=== PATIENT | male | born 2000 | race Two or more races ===

== ENCOUNTER 2021-01-28 20:02 | Observation (INO) ==
[2021-01-28] MEDS ORDERED: ONDANSETRON INJ 2 MG/ML 2 ML VIAL IV STA (20:40)
[2021-01-28 21:08] LABS: Basophils # (auto) 0.01 K/uL (0-0.2); Hematocrit (blood only) 49.9 % (42-52); Immature Granulocytes # (auto) 0.08 K/uL (0.00-0.02); Immature Granulocytes % (auto) 0.4 %; Lymphocytes # (auto) 1.04 K/uL (1.2-3.4); Lymphocytes % (auto) 4.7 %; Mean Corpuscular Hemoglobin 33.3 pg (25-34); Mean Corpuscular Hgb Conc 36.1 g/dL (32-36); Mean Corpuscular Volume 92.4 fL (80-100); Mean Platelet Volume 9.7 fL (7.4-10.4); Monocytes # (auto) 1.55 K/uL (0.11-0.59); Monocytes % (auto) 7.1 %; Neutrophils # (auto) 19.27 K/uL (1.4-6.5); Neutrophils % (auto) 87.8 %; Platelet Count 238 K/uL (130-400); RDW Standard Deviation 40.4 fL (36.4-46.3); White Blood Count 21.95 K/uL (4.8-10.8)
[2021-01-28 21:33] LABS: Albumin Level 5.1 gm/dl (3.4-5.0); BUN Creatinine Ratio 9.5 (10-20); Calcium 10.4 mg/dl (8.5-10.1); Est GFR (African American) 87.9 ml/min; Est GFR (Non-African American) 75.9 ml/min; Potassium 3.3 mmol/L (3.5-5.1)
[2021-01-28 21:36] LABS: Albumin Globulin Ratio 1.3 (0.9-2); Bilirubin,Total 1.6 mg/dl (0.2-1); Globulin 3.9 gm/dl (2.5-4.0)
[2021-01-28] MEDS ORDERED: SODIUM CHLORIDE 0.9% 1000ML 1,000 ML IV ONE (22:08)
[2021-01-28] MEDS ORDERED: diphenhydrAMINE 50 MG/ML VIAL IV STA (22:08)
[2021-01-28] MEDS ORDERED: PROCHLORPERAZINE 2 ML IV ONE (22:08)
--- NOTE | 2021-01-28 22:35 | Emergency Department Note ---
History of Present Illness General Chief complaint: Abdominal Pain Stated complaint: ABD PAIN, NAUSEA AND VOMITING Time Seen by Provider: 01/28/21 21:58 Source: patient Mode of arrival: ambulatory Limitations: no limitations History of Present Illness This patient is a 20-year-old male who presents to the emergency department for evaluation of nausea and vomiting. Patient states he woke up this morning with vomiting. He has been vomiting all day. He was seen at [facility] and had a shot of nausea medication. He was also given a dose of IV Zofran in triage prior to my evaluation of the patient. He states neither of these have worked and he is still vomiting. He has some chills and shakes but denies any fevers. He denies any abdominal pain or diarrhea. Patient was not drinking any alcohol yesterday. He thinks he may have eaten a piece of bad chicken. Patient does admit to daily marijuana use and states that he smoked marijuana yesterday. He denies any history of similar episodes of symptoms. He does report earlier in the week, he had some cough and nasal congestion, but these have now resolved. Home Medications Medication Instructions Recorded Confirmed Type No Known Home Medications 01/28/21 01/28/21 History Allergies Allergy/AdvReac Type Severity Reaction Status Date / Time No Known Allergies Allergy Unverified 01/28/21 21:54 Past Med/Surg History Medical History No significant past medical history Surgical History No significant past surgical history Social History Smoking Status: Current every day smoker Preferred Language: Ghanaian Feels Safe at Home: Yes Review of Systems A total of 10 systems reviewed and were otherwise negative Physical Exam Vital Signs Vital Signs - 24 hr 01/28/21 20:17 01/28/21 22:00 01/28/21 22:06 Temperature 36.9 C Temperature Source Oral Pulse Rate 82 77 Pulse Rate [Left Finger] 75 Pulse Rate from SpO2 Sensor 78 Pulse Rhythm [Left Finger] Regular Pulse Strength [Left Finger] Normal Respiratory Rate 18 24 18 Respiratory Effort / Characteristics Non-Labored Spontaneous Non-Labored Spontaneous Respiratory Depth Normal Normal Respiratory Pattern Regular Regular Blood Pressure 133/87 131/83 Blood Pressure [Left Arm] 131/83 Blood Pressure Mean 102 99 Blood Pressure Mean [Left Arm] 99 Blood Pressure Position Sitting Blood Pressure Position [Left Arm] Sitting Pulse Oximetry 100 100 100 Oxygen Delivery Method Room Air Room Air Room Air Sepsis Recent Fever Within 48 Hours No Sepsis New/Unexplained Change in Mental Status N/A Sepsis Action Taken by Nursing No Action Required 01/28/21 22:32 01/28/21 22:40 01/28/21 22:50 Temperature Temperature Source Pulse Rate 68 69 77 Pulse Rate [Left Finger] Pulse Rate from SpO2 Sensor 68 71 71 Pulse Rhythm [Left Finger] Pulse Strength [Left Finger] Respiratory Rate 21 17 18 Respiratory Effort / Characteristics Respiratory Depth Respiratory Pattern Blood Pressure Blood Pressure [Left Arm] Blood Pressure Mean Blood Pressure Mean [Left Arm] Blood Pressure Position Blood Pressure Position [Left Arm] Pulse Oximetry 100 100 100 Oxygen Delivery Method Room Air Room Air Room Air Sepsis Recent Fever Within 48 Hours Sepsis New/Unexplained Change in Mental Status Sepsis Action Taken by Nursing 01/28/21 23:00 01/28/21 23:22 01/28/21 23:30 Temperature Temperature Source Pulse Rate 77 Pulse Rate [Left Finger] Pulse Rate from SpO2 Sensor 74 84 64 Pulse Rhythm [Left Finger] Pulse Strength [Left Finger] Respiratory Rate 16 18 16 Respiratory Effort / Characteristics Respiratory Depth Respiratory Pattern Blood Pressure 105/40 L 121/68 Blood Pressure [Left Arm] Blood Pressure Mean 61 85 Blood Pressure Mean [Left Arm] Blood Pressure Position Blood Pressure Position [Left Arm] Pulse Oximetry 100 100 100 Oxygen Delivery Method Room Air Sepsis Recent Fever Within 48 Hours Sepsis New/Unexplained Change in Mental Status Sepsis Action Taken by Nursing 01/29/21 01:32 01/29/21 02:53 01/29/21 04:00 Temperature Temperature Source Pulse Rate Pulse Rate [Left Finger] Pulse Rate from SpO2 Sensor 62 83 82 Pulse Rhythm [Left Finger] Pulse Strength [Left Finger] Respiratory Rate 16 16 16 Respiratory Effort / Characteristics Respiratory Depth Respiratory Pattern Blood Pressure 94/46 L 100/48 L 100/54 L Blood Pressure [Left Arm] Blood Pressure Mean 62 65 69 Blood Pressure Mean [Left Arm] Blood Pressure Position Blood Pressure Position [Left Arm] Pulse Oximetry 100 95 97 Oxygen Delivery Method Room Air Sepsis Recent Fever Within 48 Hours Sepsis New/Unexplained Change in Mental Status Sepsis Action Taken by Nursing 01/29/21 05:00 01/29/21 05:31 01/29/21 06:00 Temperature Temperature Source Pulse Rate Pulse Rate [Left Finger] Pulse Rate from SpO2 Sensor 78 83 77 Pulse Rhythm [Left Finger] Pulse Strength [Left Finger] Respiratory Rate 18 16 18 Respiratory Effort / Characteristics Respiratory Depth Respiratory Pattern Blood Pressure 101/57 L 107/46 L 100/53 L Blood Pressure [Left Arm] Blood Pressure Mean 71 66 68 Blood Pressure Mean [Left Arm] Blood Pressure Position Blood Pressure Position [Left Arm] Pulse Oximetry 95 95 98 Oxygen Delivery Method Room Air Room Air Sepsis Recent Fever Within 48 Hours Sepsis New/Unexplained Change in Mental Status Sepsis Action Taken by Nursing VITALS: Vitals are noted on the nurse's note and reviewed by myself. GENERAL: This is a 20-year-old male, uncomfortable appearing, actively vomiting bilious emesis into an emesis bag. SKIN: The skin was without rashes. EARS: External auditory canals clear, tympanic membranes pearly lozano without erythema or effusion bilaterally. EYES: Pupils equal round and reactive to light and accommodation. NOSE: Patent, turbinates without inflammation or discharge. MOUTH: Mucous membranes dry. NECK: Supple without nuchal rigidity. No lymphadenopathy. HEART: Regular rate and rhythm without murmurs gallops or rubs. LUNGS: Clear to auscultation bilaterally without wheezes, rales or rhonchi. ABDOMEN: Positive bowel sounds x 4. Soft, nontender to palpation. No guarding or rebound tenderness. NEURO: Patient was alert and oriented to person place and time. Course Consultations Consultation #1: Dr. Valenzuela - Dr. Valenzuela recommends transfer to a tertiary care facility. Consultation #2: Dr. Benites - [facility] I spoke with Dr. Benites, hospitalist at [facility]. He states they do not have beds and based on the patient's clinical status, he does not feel the patient needs to be emergently transferred. He will reach out to cardiothoracic surgery for consultation. Consultation #3: Dr. García - Cardiothoracic surgery, [facility] I spoke with cardiothoracic surgery at [facility] and discussed patient's clinical status and imaging. He felt that the patient did need to be observed, but as they have no beds he could be reasonably observed at our facility. He recommends observing the patient for 24 hours and if he is doing well at that time, he may be discharged. He states that if there is any deterioration in the patient's clinical status, he should be transferred to [facility] emergently. Additional Consultation(s): Dr. Ricardo Camacho [facility] hospitalist Administered Medications Discontinued Medications Diphenhydramine HCl (Diphenhydramine 50 Mg/Ml Vial) 25 mg IV NOW STA Stop: 01/28/21 22:09 Last Admin: 01/28/21 22:24 Dose: 25 mg Documented by: [id number] Prochlorperazine (Compazine) 2 mls @ 1 mls/min IV ONE ONE Stop: 01/28/21 22:09 Last Admin: 01/28/21 23:21 Dose: 1 mls/min Documented by: [id number] Sodium Chloride (Nss 1000ml) 1,000 mls @ 999 mls/hr IV .Q1H1M ONE Stop: 01/28/21 23:08 Last Infusion: 01/28/21 23:22 Dose: 0 mls/hr Documented by: [id number] Admin: 01/28/21 22:21 Dose: 999 mls/hr Documented by: [id number] Piperacillin Sod/Tazobactam (Sod 3.375 gm/ Dextrose) 100 ml in 115 mls @ 230 mls/hr IV NOW STA Stop: 01/29/21 03:07 Last Infusion: 01/29/21 03:24 Dose: 0 mls/hr Documented by: [id number] Admin: 01/29/21 02:54 Dose: 230 mls/hr Documented by: [id number] Ioversol (Optiray 320 100ml) 93 ml IV ONCE ONE Stop: 01/28/21 23:11 Last Admin: 01/28/21 23:10 Dose: 93 ml Documented by: [id number] Miscellaneous Information (Piperacill/Tazobac Consult Active) 1 ea N/A UD PRN PRN Reason: Consult Stop: 02/28/21 02:37 Last Admin: 01/29/21 02:54 Dose: 1 ea Documented by: [id number] Ondansetron HCl (Ondansetron Inj 2 Mg/Ml 2 Ml Vial) 4 mg IV NOW STA Stop: 01/28/21 20:41 Last Admin: 01/28/21 20:58 Dose: 4 mg Documented by: [id number] Medical Decision Making Differential Diagnosis Gastroenteritis, food borne illness, infections, appendicitis, diverticulitis, inflammatory bowel disease, obstruction, GI bleed, biliary pathology, volvulus, as well as other pathologies. Home Medications Current Medication List: was personally reviewed by me Laboratory Data Attestation: I reviewed the patient's lab results. Result diagrams: 01/28/21 20:54 01/28/21 20:54 Lab Results 01/28/21 01/28/21 01/28/21 Range/Units 20:54 20:54 23:54 WBC 21.95 H (4.8-10.8) K/uL RBC 5.40 (4.7-6.1) M/uL Hgb 18.0 (14.0-18.0) g/dL Hct 49.9 (42-52) % MCV 92.4 (80-100) fL MCH 33.3 (25-34) pg MCHC 36.1 H (32-36) g/dL RDW Std Deviation 40.4 (36.4-46.3) fL RDW Coeff of Radha 12.0 (11.5-14.5) % Plt Count 238 (130-400) K/uL MPV 9.7 (7.4-10.4) fL Immature Gran % (Auto) 0.4 % Neut % (Auto) 87.8 % Lymph % (Auto) 4.7 % Day % (Auto) 7.1 % Eos % (Auto) 0.0 % Baso % (Auto) 0.0 % Neut # (Auto) 19.27 H (1.4-6.5) K/uL Lymph # (Auto) 1.04 L (1.2-3.4) K/uL Day # (Auto) 1.55 H (0.11-0.59) K/uL Eos # (Auto) 0.00 (0-0.5) K/uL Baso # (Auto) 0.01 (0-0.2) K/uL Immature Gran # (Auto) 0.08 H (0.00-0.02) K/uL Sodium 136 (136-145) mmol/L Potassium 3.3 L (3.5-5.1) mmol/L Chloride 102 (98-107) mmol/L Carbon Dioxide 23 (21-32) mmol/L Anion Gap 11.0 (3-11) BUN 13 (7-18) mg/dl Creatinine 1.33 (0.6-1.4) mg/dl Est Cr Clr Drug Dosing 105.0 ml/min Est GFR ( Amer) 87.9 ml/min Est GFR (Non-Af Amer) 75.9 ml/min BUN/Creatinine Ratio 9.5 L (10-20) Glucose 125 H (70-99) mg/dl Calcium 10.4 H (8.5-10.1) mg/dl Total Bilirubin 1.6 H (0.2-1) mg/dl AST 27 (15-37) U/L ALT 31 (12-78) U/L Alkaline Phosphatase 89 (45-117) U/L Total Protein 9.0 H (6.4-8.2) gm/dl Albumin 5.1 H (3.4-5.0) gm/dl Globulin 3.9 (2.5-4.0) gm/dl Albumin/Globulin Ratio 1.3 (0.9-2) Lipase 129 (73-393) U/L Urine Color Yellow Urine Appearance Clear (Clear) Urine pH >= 9.0 H (4.5-7.5) Ur Specific [place] > 1.045 H (1.000-1.030) Urine Protein Negative (Negative) Urine Glucose (UA) Negative (Negative) Urine Ketones 1+ H (Negative) Urine Blood Negative (Negative) Urine Nitrite Negative (Negative) Urine Bilirubin Negative (Negative) Urine Urobilinogen Negative (Negative) Ur Leukocyte Esterase Negative (Negative) Urine Opiates Screen (Neg) Ur Methadone, Qual (Neg) Urine Barbiturates (Neg) Ur Phencyclidine (PCP) (Neg) U Amphetamin/Meth Scrn (Neg) MDMA (Ecstasy) Screen (Neg) U Benzodiazepines Scrn (Neg) Ur Cocaine Metabolite (Neg) U Marijuana (THC) Screen (Neg) COVID-19 Eval Order SARS-CoV-2 (PCR) (Negative) 01/28/21 01/29/21 01/29/21 Range/Units 23:54 03:30 03:30 WBC (4.8-10.8) K/uL RBC (4.7-6.1) M/uL Hgb (14.0-18.0) g/dL Hct (42-52) % MCV (80-100) fL MCH (25-34) pg MCHC (32-36) g/dL RDW Std Deviation (36.4-46.3) fL RDW Coeff of Radha (11.5-14.5) % Plt Count (130-400) K/uL MPV (7.4-10.4) fL Immature Gran % (Auto) % Neut % (Auto) % Lymph % (Auto) % Day % (Auto) % Eos % (Auto) % Baso % (Auto) % Neut # (Auto) (1.4-6.5) K/uL Lymph # (Auto) (1.2-3.4) K/uL Day # (Auto) (0.11-0.59) K/uL Eos # (Auto) (0-0.5) K/uL Baso # (Auto) (0-0.2) K/uL Immature Gran # (Auto) (0.00-0.02) K/uL Sodium (136-145) mmol/L Potassium (3.5-5.1) mmol/L Chloride (98-107) mmol/L Carbon Dioxide (21-32) mmol/L Anion Gap (3-11) BUN (7-18) mg/dl Creatinine (0.6-1.4) mg/dl Est Cr Clr Drug Dosing ml/min Est GFR ( Amer) ml/min Est GFR (Non-Af Amer) ml/min BUN/Creatinine Ratio (10-20) Glucose (70-99) mg/dl Calcium (8.5-10.1) mg/dl Total Bilirubin (0.2-1) mg/dl AST (15-37) U/L ALT (12-78) U/L Alkaline Phosphatase (45-117) U/L Total Protein (6.4-8.2) gm/dl Albumin (3.4-5.0) gm/dl Globulin (2.5-4.0) gm/dl Albumin/Globulin Ratio (0.9-2) Lipase (73-393) U/L Urine Color Urine Appearance (Clear) Urine pH (4.5-7.5) Ur Specific [place] (1.000-1.030) Urine Protein (Negative) Urine Glucose (UA) (Negative) Urine Ketones (Negative) Urine Blood (Negative) Urine Nitrite (Negative) Urine Bilirubin (Negative) Urine Urobilinogen (Negative) Ur Leukocyte Esterase (Negative) Urine Opiates Screen Neg (Neg) Ur Methadone, Qual Neg (Neg) Urine Barbiturates Neg (Neg) Ur Phencyclidine (PCP) Neg (Neg) U Amphetamin/Meth Scrn Neg (Neg) MDMA (Ecstasy) Screen Neg (Neg) U Benzodiazepines Scrn Neg (Neg) Ur Cocaine Metabolite Neg (Neg) U Marijuana (THC) Screen Pos H (Neg) COVID-19 Eval Order Covid19 at [facility] SARS-CoV-2 (PCR) NEGATIVE (Negative) Imaging Data Radiologist's Impression: Abdomen/Pelvis CT 01/28/21 22:17 CT SCAN OF THE ABDOMEN AND PELVIS WITH IV CONTRAST CLINICAL HISTORY: Vomiting. Leukocytosis. COMPARISON STUDY: No priors. TECHNIQUE: Following the IV administration of 93 cc of Optiray 320, CT scan of the abdomen and pelvis is performed from the lung bases to the proximal femora. Images are reviewed in the axial, sagittal, and coronal planes. IV contrast was administered without complication. A dose lowering technique was utilized adhering to the principles of ALARA. CT DOSE: 356.63 mGy.cm FINDINGS: Lung bases: The heart is normal in size and without pericardial effusion. The lung bases are clear. Pneumomediastinum is noted around the distal esophagus. Liver: The contrast-enhanced liver is normal in size, contour, and attenuation. There is no intrahepatic biliary ductal dilatation. The hepatic veins and portal veins are patent. Gallbladder: Unremarkable. Spleen: Normal in size and attenuation. Pancreas: Unremarkable. Adrenal glands: Unremarkable. Kidneys: The contrast enhanced kidneys are normal in size and without hydronephrosis. The kidneys enhance symmetrically. Abdominal vasculature: The abdominal aorta is normal in course and caliber. Bowel: There is mild to moderate colonic fecal retention. No bowel obstruction is seen. The appendix is well-visualized and normal. Peritoneum: No intraperitoneal free air or abdominal ascites is identified. Lymphadenopathy: None. Pelvic viscera: The bladder, prostate, and seminal vesicles are normal as visualized. Skeletal structures: No lytic or blastic lesions are seen. IMPRESSION: 1. Pneumomediastinum is noted in the lower chest. 2. No acute infectious or inflammatory findings are seen in the abdomen or pelvis. 3. No bowel obstruction. ACT 112: Negative or not required by law. Electronically signed by: Fili Cartwright M.D. 01/29/2021 8:[address] CHEST With Contrast: As noted on the recent CT abdomen and pelvis, there is pneumomediastinum. No leakage of enteric contrast to indicate esophageal rupture. No pneumothorax. Left upper lobe airspace infiltrates suggesting pneumonitis. Radiologist: Ventura Kenny M.D. MDM Narrative Continuous monitor technician: Order was placed for continuous monitor technician. Patient was placed on the monitor technician. Patient was noted to be in normal sinus rhythm at an initial rate of 80 bpm. The patient is a 20-year-old male who presents today complaining of vomiting. I suspect that his vomiting is due to marijuana hyperemesis. He has no abdominal pain, no fevers. However, patient does have a significant leukocytosis at 21,000. Given this, a CT scan was performed. This showed pneumomediastinum. A CT of the chest with oral contrast was then performed and showed no evidence of esophageal rupture. GI was consulted and did recommend transfer to a tertiary care facility. However, [facility] has no beds available. They recommend observing the patient as he is doing well at this time. They did recommend that the patient be transferred emergently if he has any deterioration in his clinical status. After receiving IV fluids, Compazine and Benadryl here, patient felt much better and denied any symptoms at all. He actually asked to go home, but I recommended that he stay for observation and he was agreeable to this. [facility] hospitalist service was consulted and agreed to evaluate the patient for further care. Impression & Plan Pneumomediastinum, Vomiting Discharge Plan Visit Data Chief Complaint: Abdominal Pain Stated Complaint: ABD PAIN, NAUSEA AND VOMITING ED Provider: Frederic Griggs ED Midlevel Provider: Trinity Alvarado Discharge Problem: Pneumomediastinum, Vomiting Patient Disposition: Admitted As Inpatient Discharge Instructions Interventions: ED Discharge Assessment Last Done: 01/29/21 07:49
[2021-01-28] MEDS ORDERED: OPTIRAY 320 100ml IV ONE (23:10)
[2021-01-29 00:20] LABS: Appearance Urine Clear (Clear); Bilirubin Urine Negative (Negative); Blood Urine Negative (Negative); Color Urine Yellow; Glucose Urine UA Negative (Negative); Ketones Urine 1+ (Negative); Leukocyte Esterase Urine Negative (Negative); Nitrite Urine Negative (Negative); Protein Urine Negative (Negative); Specific Gravity Urine > 1.045 (1.000-1.030); Urobilinogen Urine Negative (Negative); pH Urine >= 9.0 (4.5-7.5)
[2021-01-29 00:27] LABS: Amphetamines+Metham, Urine Neg (Neg); Barbiturates, Urine Neg (Neg); Benzodiazepine, Urine Neg (Neg); Cocaine, Urine Neg (Neg); MDMA (Ecstacy), Urine Neg (Neg); Methadone, Urine Neg (Neg); Opiate, Urine Neg (Neg); Phencyclidine, Urine Neg (Neg)
[2021-01-29] MEDS ORDERED: PIPERACILLIN/TAZOBACTAM 3.375 GM in DEXTROSE 5% 100 ML/100 ML BAG IV STA (02:38)
[2021-01-29] MEDS ORDERED: PIPERACILL/TAZOBAC CONSULT ACTIVE PRN (02:38)
[2021-01-29] MEDS ORDERED: ONDANSETRON INJ 2 MG/ML 2 ML VIAL IV PRN (08:07)
[2021-01-29] MEDS ORDERED: PROMETHAZINE HCL 6.25 MG in SODIUM CHLORIDE 0.9% 50 ML IV PRN (08:07)
--- NOTE | 2021-01-29 08:24 | CT Scan Report ---
CT SCAN OF THE ABDOMEN AND PELVIS WITH IV CONTRAST CLINICAL HISTORY: Vomiting. Leukocytosis. COMPARISON STUDY: No priors. TECHNIQUE: Following the IV administration of 93 cc of Optiray 320, CT scan of the abdomen and pelvi s is performed from the lung bases to the proximal femora. Images are reviewed in the axial, sagittal , and coronal planes. IV contrast was administered without complication. A dose lowering technique wa s utilized adhering to the principles of ALARA. CT DOSE: 356.63 mGy.cm FINDINGS: Lung bases: The heart is normal in size and without pericardial effusion. The lung bases are clear. P neumomediastinum is noted around the distal esophagus. Liver: The contrast-enhanced liver is normal in size, contour, and attenuation. There is no intrahepa tic biliary ductal dilatation. The hepatic veins and portal veins are patent. Gallbladder: Unremarkable. Spleen: Normal in size and attenuation. Pancreas: Unremarkable. Adrenal glands: Unremarkable. Kidneys: The contrast enhanced kidneys are normal in size and without hydronephrosis. The kidneys enh ance symmetrically. Abdominal vasculature: The abdominal aorta is normal in course and caliber. Bowel: There is mild to moderate colonic fecal retention. No bowel obstruction is seen. The appendix is well-visualized and normal. Peritoneum: No intraperitoneal free air or abdominal ascites is identified. Lymphadenopathy: None. Pelvic viscera: The bladder, prostate, and seminal vesicles are normal as visualized. Skeletal structures: No lytic or blastic lesions are seen. IMPRESSION: 1. Pneumomediastinum is noted in the lower chest. 2. No acute infectious or inflammatory findings are seen in the abdomen or pelvis. 3. No bowel obstruction. ACT 112: Negative or not required by law. Electronically signed by: Fili Cartwright M.D. 01/29/2021 8:22 AM
[2021-01-29] MEDS: POTASSIUM CHLORIDE 20 MEQ in LACTATED RINGER'S 1,000 ML IV SCH ×2 (08:52→18:16)
--- NOTE | 2021-01-29 09:23 | CT Scan Report ---
CT OF THE CHEST WITHOUT IV CONTRAST CLINICAL HISTORY: pneumomediastinum, vomiting COMPARISON STUDY: No previous studies for comparison. TECHNIQUE: Following the oral administration of contrast, CT of the thorax was performed from the t horacic inlet to the lung bases. Images are reviewed in the axial, sagittal, and coronal planes. . A dose lowering technique was utilized adhering to the principles of ALARA. CT DOSE: 359.96 mGy.cm FINDINGS: No axillary lymphadenopathy seen. Supra clavicle lymph nodes are not well seen. There is no internal mammary lymphadenopathy. Mediastinal lymph nodes are not enlarged. Thyroid: Visualized portion of thyroid gland shows no evidence of focal lesions. Esophagus is patulou s with contrast-gas level. There is no extension of the oral contrast from esophagus to suggest esoph ageal perforation. Thoracic aorta: The thoracic aorta is normal in course and caliber, noting standard 3-vessel arch kaleigh staci. No aneurysm or dissection is seen. Pulmonary vasculature: Is normal in caliber. Pneumomediastinum is seen surrounding trachea, esophagus and aorta. Gas collection also extend into t he neck outlining thyroid gland and carotid arteries. Small amount of gas is seen extending to the ri ght apex and creating minimal right apical pneumothorax. HEART: The heart is normal in size and configuration, without pericardial effusion. No pneumopericard ium is seen. Lungs and pleural spaces: Tracheobronchial tree is patent. There are patchy areas of groundglass attenuation within left upper lobe associated with mild septal thickening concerning for atypical infection. No pleural effusion demonstrated. Upper abdomen: Please see report of the CT of abdomen and pelvis performed at the same time. Skeletal structures: Unremarkable. IMPRESSION: * Pneumomediastinum extending to the neck region. No evidence of leakage of esophageal oral contrast to suggest esophageal perforation. Minimal extension of the gas from mediastinum to the right apex, small right apical pneumothorax. * No pneumopericardium. * Patchy infiltrative/groundglass opacities within left upper lung suggestive of infectious etiology /Covid. Short-term follow-up in 4-6 weeks is recommended to document resolution. * The rest of findings as above. ACT 112: Negative or not required by law. The above report was generated using voice recognition software. It may contain grammatical, syntax o r spelling errors. Electronically signed by: Za Mayberry DO 01/29/2021 9:22 AM
--- NOTE | 2021-01-29 09:31 | Gastrointestinal Consultation ---
Date of Consultation January 29, 2021 Assessment & Plan (1) Pneumomediastinum: -Would continue IV antibiotic therapy and serial imaging while admitted here. No GI interventions to offer. Consider tertiary transfer for CT surgical intervention if decompensating/imaging not improving. (2) Vomiting: -Patient is currently ordered Phenergan, Compazine, & Ondansetron. He has no further nausea and vomiting. -Supportive care and electrolyte replacement per primary team. Supervising Physician Co-Signing Physician Notes Agree with GEOVANNY Bueno as above Patient is feeling much better, and denies chest pain, dysphagia, odynophagia, nausea, vomiting or fevers Abd: Soft, NT, ND, +BS Barium swallow reviewed and shows no esophageal perforation. OK to try clear liquid diet tonight Repeat Chest X-ray tomorrow History of Present Illness Attending Physician: Ventura Goldman History of Present Illness Patient is a 20 yo male who presented to [facility] with nausea and vomiting since yesterday morning. He went to urgent care and was given antiemetics. He reported chills/rigors in the ED. He does not have any pain. He reports daily marijuana use, but has never experienced these symptoms. CT imaging in the ED indicated pneumomediastinum. The case was discussed with Dr. Valenzuela of [facility] who recommended transfer to a tertiary center. Reportedly when [facility] was reached and had no beds, he was then admitted to [facility]. A GI consult was placed. Patient's WBC count is 21,950 and K is 3.3. He tells me this morning he has no more nausea & vomiting. He is feeling well. He denies chest pain or shortness of breath. Denies abdominal pain. He reports some feeling of burning in his throat. He is hungry. He believes he may have had food poisoning. Allergies Allergy/AdvReac Type Severity Reaction Status Date / Time No Known Allergies Allergy Unverified 01/28/21 21:54 Home Medications Medication Instructions Recorded Confirmed Type No Known Home Medications 01/28/21 01/28/21 History Patient History Medical History No significant past medical history Surgical History No significant past surgical history Social History (Updated 01/29/21 @ 09:51 by Fili Baird PA-C) Smoking Status: Current every day smoker Tobacco Type: Cigarettes Second Hand Exposure: No; Do You Dip or Chew Tobacco: No; Tobacco Cessation Education Requested by Patient: No Hx Alcohol Use: No Hx Substance Use: Yes (Daily marijuana use) Prescribed Medications: Marijuana Non-Prescribed Medications Comment: No other substance abuse Last Used Substance: Days (ago) Preferred Language: Nicaraguan Communication Ability: Effective Prep Manager Required: No Beliefs That Will Affect Care: None Current Living Situation: Other Current Living Situation Comment: lives in apartment with 4 friends current occupational status: student current occupation: [employer] student Feels Safe at Home: Yes Safety Concerns: Feels Safe At This Time Review of Systems Constitutional: + chills; no fever Respiratory: no cough and no dyspnea Cardiovascular: no chest pain Gastrointestinal: no abdominal pain, no nausea and no vomiting Psychiatric: no problem reported Physical Exam Constitutional: WD/WN, vitals as above Respiratory: normal respiratory effort Gastrointestinal (Abdomen): normal bowel sounds, soft, nontender, no hepatosplenomegaly Psychiatric: A+Ox3, euthymic affect Results & Data ([facility]) Vital Signs (Past 12 Hours) Vital Signs Temp Pulse Pulse Resp BP BP Pulse Ox 01/29/21 08:09 37 C 73 18 120/71 97 01/29/21 07:49 80 16 103/58 L 98 01/29/21 06:00 18 100/53 L 98 01/29/21 05:31 16 107/46 L 95 01/29/21 05:00 18 101/57 L 95 01/29/21 04:00 16 100/54 L 97 01/29/21 02:53 16 100/48 L 95 01/29/21 01:32 16 94/46 L 100 01/28/21 23:30 16 121/68 100 01/28/21 23:22 18 105/40 L 100 01/28/21 23:00 77 16 100 01/28/21 22:50 77 18 100 01/28/21 22:40 69 17 100 01/28/21 22:32 68 21 100 01/28/21 22:06 75 18 131/83 100 01/28/21 22:00 77 24 131/83 100 PG Care Time/CCT Total # of Minutes Spent Total Time Spent with Patient: Total time spent is greater than 50% in coordination of care (as documented) at patient's floor/unit and/or counseling patient: Coding Level of Care Code 23538 Inpt Consult Level 4 Diagnoses Pneumomediastinum J98.2 Vomiting R11.10
--- NOTE | 2021-01-29 09:57 | History & Physical Report ---
Date of Service January 29, 2021 Assessment & Plan (1) Pneumomediastinum: Plan: Attending: Dr. Almazan Impression: This is a 20-year-old male that began having nausea and vomiting yesterday. Patient unsure if this is food poisoning or something else that he ate. He denies any hematemesis. No chest pain or tightness. No tearing sensation. Rigors but no fever. No trauma or other injury. CT abd/pelvis with pneumomediastinum Dedicated CT Chest with pneumomediastinum up into the neck. Will order a Barium swallow study with gastrografin to rule out esophageal perforation Continue to monitor on telemetry GI Consult requested (2) Abdominal pain: Plan: Unclear etiology Positive nausea and vomiting No diarrhea Afebrile WBC elevated at 21.95 Zosyn in the ED Will continue with Unasyn on the floor Await cultures (3) Hypokalemia: Plan: Potassium 3.3 Most likely due vomiting Will continue to replace potassium chloride and IV solution for now. If no evidence of esophageal perforation, will prescribe oral repletion (4) Pneumothorax: Plan: Identified on CT scan of the chest Patient with no hypoxia Repeat chest x-ray in 4 hours We will treat with supplemental oxygen by Oxymask pending repeat chest x-ray (5) Tobacco abuse: Plan: Discussed tobacco cessation and dangers of smoking (6) Marijuana use: Plan: Discussed cessation Patient denies any other substance abuse (7) DVT prophylaxis: Plan: No chemical prophylaxis at this time due to pneumomediastinum Ambulate as tolerated SCDs ordered Please refer to Dr. Almazan's addendum for further recommendations or corrections. Admission and Anticipated Discharge Date Admission Date: January 29, 2021 History of Present Illness Chief Complaint: Nausea and vomiting Primary Care Provider: NO PCP Attending: Dr. Almazan This is a 20-year-old male who is a [employer] student. He has no significant past medical history other than tobacco and marijuana abuse. Patient currently resides in apartment with 4 of his friends. He is in no acute distress. Patient reports that he began having nausea and vomiting yesterday. Vomiting was violent with significant retching and was "relentless". He denies any hematemesis. He had no tearing sensation. He had no back pain or chest pain. He does not know the reason for his nausea and vomiting and wonders if it was "something he ate". He reports that he had rigors but denies any fever. He had no sweats. He denies any ingestion of ethanol. Aside from cigarette and marijuana use he denies any other substance abuse issues or history. He has no prior history of peptic ulcer disease, GERD, malignancy. He does have an older brother who has testicular cancer. No other malignancy in the family. The patient denies any history of positive Covid infection. He reports that he is NOT vaccinated. He does have a sore throat which he attributes to his vomiting. He has no loss of taste or smell. He has no other constitutional complaints. Allergies Allergy/AdvReac Type Severity Reaction Status Date / Time No Known Allergies Allergy Unverified 01/28/21 21:54 Home Medications Medication Instructions Recorded Confirmed Type No Known Home Medications 01/28/21 01/28/21 History Past Med/Surg History Medical History No significant past medical history Surgical History No significant past surgical history Social History (Updated 01/29/21 @ 09:51 by Fili Baird PA-C) Smoking Status: Current every day smoker Tobacco Type: Cigarettes Second Hand Exposure: No; Do You Dip or Chew Tobacco: No; Tobacco Cessation Education Requested by Patient: No Hx Alcohol Use: No Hx Substance Use: Yes (Daily marijuana use) Prescribed Medications: Marijuana Non-Prescribed Medications Comment: No other substance abuse Last Used Substance: Days (ago) Preferred Language: Syrian Communication Ability: Effective Steeple Jack Required: No Beliefs That Will Affect Care: None Current Living Situation: Other Current Living Situation Comment: lives in apartment with 4 friends current occupational status: student current occupation: [employer] student Feels Safe at Home: Yes Safety Concerns: Feels Safe At This Time Review of Systems Review of Systems: All systems reviewed & are unremarkable except as noted in Subjective Physical Exam Physical Exam: GENERAL : No acute distress EYES: No icterus, gaze conjugate pupils equal and round NOSE: No evidence of epistaxis MOUTH: No lesions or candidiasis. Tongue midline. Mucosa moist NECK: Supple. No appreciation of crepitus. No subcutaneous emphysema LUNGS: CTA B/L, no wheezes, rales or rhonchi. Good inspirational effort CHEST: No appreciation of crepitus. No evidence of subcutaneous air. No paradoxical chest wall movement HEART: Regular, rate controlled ABDOMEN: Soft, NT, ND, BS Present EXTREMITIES: No LE edema, pedal pulses intact and equal bilaterally NEURO: A&OX3 Results & Data Results & Data ([facility]) Vital Signs (Past 12 Hours) Vital Signs Temp Pulse Pulse Resp BP BP Pulse Ox 01/29/21 09:39 75 01/29/21 08:09 37 C 73 18 120/71 97 01/29/21 07:49 80 16 103/58 L 98 01/29/21 06:00 18 100/53 L 98 01/29/21 05:31 16 107/46 L 95 01/29/21 05:00 18 101/57 L 95 01/29/21 04:00 16 100/54 L 97 01/29/21 02:53 16 100/48 L 95 01/29/21 01:32 16 94/46 L 100 01/28/21 23:30 16 121/68 100 01/28/21 23:22 18 105/40 L 100 01/28/21 23:00 77 16 100 01/28/21 22:50 77 18 100 01/28/21 22:40 69 17 100 01/28/21 22:32 68 21 100 01/28/21 22:06 75 18 131/83 100 01/28/21 22:00 77 24 131/83 100 Laboratory Results 01/28/21 20:54 01/28/21 20:54 Diagnostic Findings Abdomen/Pelvis CT 01/28/21 22:17 CT SCAN OF THE ABDOMEN AND PELVIS WITH IV CONTRAST CLINICAL HISTORY: Vomiting. Leukocytosis. COMPARISON STUDY: No priors. TECHNIQUE: Following the IV administration of 93 cc of Optiray 320, CT scan of the abdomen and pelvis is performed from the lung bases to the proximal femora. Images are reviewed in the axial, sagittal, and coronal planes. IV contrast was administered without complication. A dose lowering technique was utilized adhering to the principles of ALARA. CT DOSE: 356.63 mGy.cm FINDINGS: Lung bases: The heart is normal in size and without pericardial effusion. The lung bases are clear. Pneumomediastinum is noted around the distal esophagus. Liver: The contrast-enhanced liver is normal in size, contour, and attenuation. There is no intrahepatic biliary ductal dilatation. The hepatic veins and portal veins are patent. Gallbladder: Unremarkable. Spleen: Normal in size and attenuation. Pancreas: Unremarkable. Adrenal glands: Unremarkable. Kidneys: The contrast enhanced kidneys are normal in size and without hydronephrosis. The kidneys enhance symmetrically. Abdominal vasculature: The abdominal aorta is normal in course and caliber. Bowel: There is mild to moderate colonic fecal retention. No bowel obstruction is seen. The appendix is well-visualized and normal. Peritoneum: No intraperitoneal free air or abdominal ascites is identified. Lymphadenopathy: None. Pelvic viscera: The bladder, prostate, and seminal vesicles are normal as visualized. Skeletal structures: No lytic or blastic lesions are seen. IMPRESSION: 1. Pneumomediastinum is noted in the lower chest. 2. No acute infectious or inflammatory findings are seen in the abdomen or pelvis. 3. No bowel obstruction. ACT 112: Negative or not required by law. Electronically signed by: Fili Cartwright M.D. 01/29/2021 8:[address] 01/29/21 01:10 CT OF THE CHEST WITHOUT IV CONTRAST CLINICAL HISTORY: pneumomediastinum, vomiting COMPARISON STUDY: No previous studies for comparison. TECHNIQUE: Following the oral administration of contrast, CT of the thorax was performed from the thoracic inlet to the lung bases. Images are reviewed in the axial, sagittal, and coronal planes. . A dose lowering technique was utilized adhering to the principles of ALARA. CT DOSE: 359.96 mGy.cm FINDINGS: No axillary lymphadenopathy seen. Supra clavicle lymph nodes are not well seen. There is no internal mammary lymphadenopathy. Mediastinal lymph nodes are not enlarged. Thyroid: Visualized portion of thyroid gland shows no evidence of focal lesions. Esophagus is patulous with contrast-gas level. There is no extension of the oral contrast from esophagus to suggest esophageal perforation. Thoracic aorta: The thoracic aorta is normal in course and caliber, noting standard 3-vessel arch anatomy. No aneurysm or dissection is seen. Pulmonary vasculature: Is normal in caliber. Pneumomediastinum is seen surrounding trachea, esophagus and aorta. Gas collection also extend into the neck outlining thyroid gland and carotid arteries. Small amount of gas is seen extending to the right apex and creating minimal right apical pneumothorax. HEART: The heart is normal in size and configuration, without pericardial effusion. No pneumopericardium is seen. Lungs and pleural spaces: Tracheobronchial tree is patent. There are patchy areas of groundglass attenuation within left upper lobe associated with mild septal thickening concerning for atypical infection. No pleural effusion demonstrated. Upper abdomen: Please see report of the CT of abdomen and pelvis performed at the same time. Skeletal structures: Unremarkable. IMPRESSION: * Pneumomediastinum extending to the neck region. No evidence of leakage of esophageal oral contrast to suggest esophageal perforation. Minimal extension of the gas from mediastinum to the right apex, small right apical pneumothorax. * No pneumopericardium. * Patchy infiltrative/groundglass opacities within left upper lung suggestive of infectious etiology/Covid. Short-term follow-up in 4-6 weeks is recommended to document resolution. * The rest of findings as above. ACT 112: Negative or not required by law. The above report was generated using voice recognition software. It may contain grammatical, syntax or spelling errors. Electronically signed by: Za Mayberry DO 01/29/2021 9:22 AM Medications Administered Current Inpatient Medications Promethazine HCl 6.25 mg/ (Sodium Chloride) 50.25 mls @ 201 mls/hr IV Q6H PRN PRN Reason: Nausea And Vomiting Stop: 02/28/21 08:06 Potassium Chloride 20 meq/ (Lactated Ringer's) 1,010 mls @ 125 mls/hr IV .Q8H5M [facility] Stop: 01/30/21 00:39 Last Admin: 01/29/21 08:52 Dose: 125 mls/hr Documented by: Ampicillin Sodium/Sulbactam Sodium 3,000 mg/ Sodium Chloride 108 mls @ 200 mls/hr IV Q6H [facility]; Protocol Stop: 02/05/21 08:29 Pantoprazole Sodium 40 mg/ (Syringe) 10 mls @ 5 mls/min IV BID VINICIO Stop: 02/28/21 09:59 Ondansetron HCl (Ondansetron Inj 2 Mg/Ml 2 Ml Vial) 4 mg IV Q6H PRN PRN Reason: Nausea Stop: 02/28/21 08:06 Patient received Zosyn in the emergency department Code Status & VTE Plan Code Status Full resuscitation level 1 Supervising Physician Co-Signing Physician Notes PA Supervision Note: I personally saw and examined the patient. I verified all chung points and agree with FLAQUITA Baird with the following exceptions and/or additions: This patient is a 20-year-old male with no significant past medical history except marijuana use who presents with intractable nausea vomiting and was found to have a large pneumomediastinum and small apical pneumothorax on imaging. He was admitted for observation at the recommendation of a call from ER physician to CT surgery at [facility] in [place]. When I saw him, he complained only of a mild sore throat, but otherwise felt fine and was hungry. He denied chest pain or shortness of breath, no neck pain or back pain, no abdominal janae ns. He is still having some loose stools from the contrast from the CT scan oral contrast and the barium swallow which did not show any esophageal rupture. History reviewed, ROS reviewed Vitals reviewed Gen: AAOx3, NAD HEENT: Anicteric sclerae, EOMI, very mild subcutaneous emphysema palpable just above the right clavicle CV: RRR no mgr nl S1S2 Pulm: CTAB no wcr Abd: +BS soft NT ND no masses or hernias Ext: No edema, 2+ DP pulses Skin: No rashes, warm/dry Neuro: Full strength throughout Laboratory values reviewed Imaging studies reviewed 20-year-old male here with intractable nausea/vomiting and pneumomediastinum and small apical pneumothorax-esophageal rupture ruled out. He does have left upper lobe pneumonitis which is likely aspiration from vomiting, however no fevers and no cough or respiratory symptoms. Does have leukocytosis secondary to vomiting pneumomediastinum Continue supportive care, observation for worsening of symptoms secondary to pneumomediastinum Continue IV Protonix, IV fluid and potassium replacement Continue IV Unasyn prophylactically Follow CBC, BMP in the morning Appreciate GI consultation Follow chest x-ray in the morning Okay to advance diet to clear liquids in the afternoon as he is much improved Continue antiemetics as needed PG Care Time/CCT Total # of Minutes Spent Total Time Spent with Patient: Total time spent is greater than 50% in coordin ation of care (as documented) at patient's floor/unit and/or counseling patient:45 Coding Level of Care Code 83390 Initial Inpt Care Lvl 3 Diagnoses Pneumomediastinum J98.2 Abdominal pain R10.9 Tobacco abuse Z72.0 Marijuana use F12.90 DVT prophylaxis Z29.9 Hypokalemia E87.6 Pneumothorax J93.9 Time Spent (min) 60
[2021-01-29] MEDS: AMPICILLIN/SULBACTAM SOD 3,000 MG in 0.9 % SODIUM CHLORIDE 100 ML IV SCH ×3 (10:43→21:12)
[2021-01-29] MEDS: PANTOprazole 40 MG in SYRINGE 0 ML IV SCH ×2 (10:43→21:12)
[2021-01-29] MEDS ORDERED: PANTOprazole 40 MG in SYRINGE 0 ML IV SCH (11:00)
--- NOTE | 2021-01-29 11:22 | Fluoroscopy Report ---
FL barium swallow w/o air CLINICAL HISTORY: 20 years-old Male with R/O esophageal perforation. Pneumomediastinum with possible soft tissue injury. TECHNIQUE: Water-soluble contrast was administered to the patient under fluoroscopic examination. Mu ltiple images were obtained and submitted for review. FLUOROSCOPY TIME: 0.3 minutes. 13 images were submitted. COMPARISON: Chest CT 01/29/2021 FINDINGS: During deglutition, contrast material flowed freely through the cervical esophagus. No filling defec t or mucosal abnormality is identified. No abnormal stricturing or mass effect is seen. The mid to distal esophagus is well coated and distended. No abnormal stricturing or mucosal abnormality is bryan ntified. No significant reflux or hiatal hernia was demonstrated during the exam. The GE junction i s normal in appearance. Pneumomediastinum redemonstrated. IMPRESSION: Pneumomediastinum redemonstrated. No esophageal injury identified. ACT 112: Negative or not required by law. The above report was generated using voice recognition software. It may contain grammatical, syntax o r spelling errors. Electronically signed by: Felix Hughes M.D. 01/29/2021 11:21 AM
--- NOTE | 2021-01-29 13:50 | XRay Report ---
XR chest 2V PA/lateral INDICATION: MN ^Small apical pneumothorax. TECHNIQUE: AP and lateral frontal radiograph of the chest was obtained. Comparison: None available at the time of this dictation. FINDINGS: No lines and tubes are seen. The cardiomediastinal silhouette is normal. The lungs are clear. No evid ence of pleural effusion or pneumothorax. IMPRESSION: No acute chest disease. ACT 112: Negative or not required by law. Electronically signed by: Jerel Guthrie M.D. 01/29/2021 1:48 PM
[2021-01-29] MEDS ORDERED: PANTOprazole 40 MG TAB PO SCH (21:00)
[2021-01-30] MEDS: AMPICILLIN/SULBACTAM SOD 3,000 MG in 0.9 % SODIUM CHLORIDE 100 ML IV SCH ×2 (03:18→10:08)
[2021-01-30 07:24] LABS: Basophils # (auto) 0.02 K/uL (0-0.2); Basophils % (auto) 0.2 %; Eosinophils # (auto) 0.12 K/uL (0-0.5); Eosinophils % (auto) 1.3 %; Hematocrit (blood only) 44.1 % (42-52); Hemoglobin 15.3 g/dL (14.0-18.0); Immature Granulocytes # (auto) 0.01 K/uL (0.00-0.02); Immature Granulocytes % (auto) 0.1 %; Lymphocytes # (auto) 2.39 K/uL (1.2-3.4); Lymphocytes % (auto) 26.8 %; Mean Corpuscular Hemoglobin 33.1 pg (25-34); Mean Corpuscular Hgb Conc 34.7 g/dL (32-36); Mean Corpuscular Volume 95.5 fL (80-100); Monocytes # (auto) 0.83 K/uL (0.11-0.59); Monocytes % (auto) 9.3 %; Neutrophils # (auto) 5.56 K/uL (1.4-6.5); Neutrophils % (auto) 62.3 %; Platelet Count 169 K/uL (130-400); RDW Coefficient of Variation 12.5 % (11.5-14.5); RDW Standard Deviation 43.3 fL (36.4-46.3); Red Blood Count 4.62 M/uL (4.7-6.1); White Blood Count 8.93 K/uL (4.8-10.8)
[2021-01-30 08:15] LABS: Albumin Level 3.7 gm/dl (3.4-5.0); BUN Creatinine Ratio 10.6 (10-20); Bilirubin Direct 0.2 mg/dl (0-0.2); Bilirubin,Total 0.7 mg/dl (0.2-1); Calcium 9.3 mg/dl (8.5-10.1); Creatinine Clr Calc Pharmacy 124.7 ml/min; Est GFR (African American) 108.3 ml/min; Est GFR (Non-African American) 93.4 ml/min; Potassium 3.9 mmol/L (3.5-5.1); Total Protein 6.7 gm/dl (6.4-8.2)
[2021-01-30] MEDS: PANTOprazole 40 MG in SYRINGE 0 ML IV SCH (10:08)
--- NOTE | 2021-01-30 10:32 | Gastroenterology Progress Note ---
Date of Service January 30, 2021 Assessment & Plan (1) Pneumomediastinum: Plan: -Repeat CXR pending, though patient has clinically improved and is requesting to go home -Continue diet as tolerated -Discharge planning per primary team (2) Vomiting: Plan: -Resolved entirely Admission and Anticipated Discharge Date Admission Date: January 29, 2021 Supervising Physician Co-Signing Physician Notes Patient discharged prior to my evaluation Agree with Nelda Sainz PAC as above Subjective Patient is a 20 yo male with pneumomediastinum. Barium swallow without evidence of esophageal perforation. Patient is feeling remarkable better, is tolerating his diet and would like to return home. A CXR was repeated this morning and radiology read is pending. Leukocytosis is resolved. Review of Systems Constitutional: no fever and no chills Respiratory: no cough and no dyspnea Cardiovascular: no chest pain Gastrointestinal: no abdominal pain, no nausea and no vomiting Physical Exam Constitutional: WD/WN, vitals as above Respiratory: normal respiratory effort clear to auscultation Gastrointestinal (Abdomen): Percussion/Palpation: abdomen nontender Psychiatric: Orientation: alert and oriented x 3 Results & Data Results & Data ([facility]) Vital Signs (Past 12 Hours) Vital Signs Temp Pulse Pulse Resp BP BP Pulse Ox 01/30/21 07:38 60 01/30/21 07:00 36.7 C 63 18 130/78 99 01/30/21 04:00 36.9 C 63 18 108/60 98 01/30/21 00:45 68 PG Care Time/CCT Total # of Minutes Spent Total Time Spent with Patient: Total time spent is greater than 50% in [facility] (as documented) at patient's floor/unit and/or counseling patient: Coding Level of Care Code 04961 Subseq Hosp Care Lvl 3 Diagnoses Pneumomediastinum J98.2 Vomiting R11.10
--- NOTE | 2021-01-30 10:54 | XRay Report ---
XR chest 2V PA/lateral INDICATION: MN ^f/u pneumomediastinum and PTX. TECHNIQUE: AP and lateral frontal radiograph of the chest was obtained. Comparison: Comparison is made to chest 2 views 01/29/2021 FINDINGS: No lines and tubes are seen. The cardiomediastinal silhouette is normal. The lungs are clear. No evid ence of pleural effusion or pneumothorax. IMPRESSION: No acute chest disease. ACT 112: Negative or not required by law. Electronically signed by: Jerel Guthrie M.D. 01/30/2021 10:53 AM
--- NOTE | 2021-01-30 14:00 | Discharge Summary ---
Date of Service January 30, 2021 Admission HPI Per Admitting Provider Attending: Dr. Almazan This is a 20-year-old male who is a [employer] student. He has no significant past medical history other than tobacco and marijuana abuse. Patient currently resides in apartment with 4 of his friends. He is in no acute distress. Patient reports that he began having nausea and vomiting yesterday. Vomiting was violent with significant retching and was "relentless". He denies any hematemesis. He had no tearing sensation. He had no back pain or chest pain. He does not know the reason for his nausea and vomiting and wonders if it was "something he ate". He reports that he had rigors but denies any fever. He had no sweats. He denies any ingestion of ethanol. Aside from cigarette and marijuana use he denies any other substance abuse issues or history. He has no prior history of peptic ulcer disease, GERD, malignancy. He does have an older brother who has testicular cancer. No other malignancy in the family. The patient denies any history of positive Covid infection. He reports that he is NOT vaccinated. He does have a sore throat which he attributes to his vomiting. He has no loss of taste or smell. He has no other constitutional complaints. Admission Exam Per Admitting Provider GENERAL : No acute distress EYES: No icterus, gaze conjugate pupils equal and round NOSE: No evidence of epistaxis MOUTH: No lesions or candidiasis. Tongue midline. Mucosa moist NECK: Supple. No appreciation of crepitus. No subcutaneous emphysema LUNGS: CTA B/L, no wheezes, rales or rhonchi. Good inspirational effort CHEST: No appreciation of crepitus. No evidence of subcutaneous air. No paradoxical chest wall movement HEART: Regular, rate controlled ABDOMEN: Soft, NT, ND, BS Present EXTREMITIES: No LE edema, pedal pulses intact and equal bilaterally NEURO: A&OX3 Principal Diagnosis Nausea and vomiting, pneumomediastinum Discharge Exam GENERAL : No acute distress EYES: No icterus, gaze conjugate NOSE: No evidence of epistaxis MOUTH: No lesions or candidiasis NECK: Supple. Continues to have some crepitus LUNGS: Generally CTA B/L. There is some evidence of inspiratory wheeze posteriorly in the area of the lingula HEART: Regular, rate controlled ABDOMEN: Soft, NT, ND, BS Present EXTREMITIES: No LE edema, pedal pulses intact NEURO: A&OX3 Discharge Data Allergies Allergy/AdvReac Type Severity Reaction Status Date / Time No Known Allergies Allergy Unverified 01/28/21 21:54 Consultations 01/29/21 07:20 ED Decision to Admit Stat 01/29/21 07:35 Consult Gastroenterology Routine Date of Consultation January 29, 2021 Assessment & Plan (1) Pneumomediastinum: -Would continue IV antibiotic therapy and serial imaging while admitted here. No GI interventions to offer. Consider tertiary transfer for CT surgical intervention if decompensating/imaging not improving. (2) Vomiting: -Patient is currently ordered Phenergan, Compazine, & Ondansetron. He has no further nausea and vomiting. -Supportive care and electrolyte replacement per primary team. Supervising Physician Co-Signing Physician Notes Agree with GEOVANNY Bueno as above Patient is feeling much better, and denies chest pain, dysphagia, odynophagia, nausea, vomiting or fevers Abd: Soft, NT, ND, +BS Barium swallow reviewed and shows no esophageal perforation. OK to try clear liquid diet tonight Repeat Chest X-ray tomorrow History of Present Illness Attending Physician: Ventura Goldman History of Present Illness Patient is a 20 yo male who presented to [facility] with nausea and vomiting since yesterday morning. He went to urgent care and was given antiemetics. He reported chills/rigors in the ED. He does not have any pain. He reports daily marijuana use, but has never experienced these symptoms. CT imaging in the ED indicated pneumomediastinum. The case was discussed with Dr. Valenzuela of [facility] who recommended transfer to a tertiary center. Reportedly when [facility] was reached and had no beds, he was then admitted to [facility]. A GI consult was placed. Patient's WBC count is 21,950 and K is 3.3. He tells me this morning he has no more nausea & vomiting. He is feeling well. He denies chest pain or shortness of breath. Denies abdominal pain. He reports some feeling of burning in his throat. He is hungry. He believes he may have had food poisoning. Allergies Allergy/AdvReac Type Severity Reaction Status Date / Time No Known Allergies Allergy Unverified 01/28/21 21:54 Home Medications Medication Instructions Recorded Confirmed Type No Known Home Medications 01/28/21 01/28/21 History Patient History Medical History No significant past medical history Surgical History No significant past surgical history Social History (Updated 01/29/21 @ 09:51 by Fili Baird PA-C) Smoking Status: Current every day smoker Tobacco Type: Cigarettes Second Hand Exposure: No; Do You Dip or Chew Tobacco: No; Tobacco Cessation Education Requested by Patient: No Hx Alcohol Use: No Hx Substance Use: Yes (Daily marijuana use) Prescribed Medications: Marijuana Non-Prescribed Medications Comment: No other substance abuse Last Used Substance: Days (ago) Preferred Language: Bulgarian Communication Ability: Effective Mat Linker Required: No Beliefs That Will Affect Care: None Current Living Situation: Other Current Living Situation Comment: lives in apartment with 4 friends current occupational status: student current occupation: [employer] student Feels Safe at Home: Yes Safety Concerns: Feels Safe At This Time Review of Systems Constitutional: + chills; no fever Respiratory: no cough and no dyspnea Cardiovascular: no chest pain Gastrointestinal: no abdominal pain, no nausea and no vomiting Psychiatric: no problem reported Physical Exam Constitutional: WD/WN, vitals as above Respiratory: normal respiratory effort Gastrointestinal (Abdomen): normal bowel sounds, soft, nontender, no hepatosplenomegaly Psychiatric: A+Ox3, euthymic affect Results & Data ([facility]) Vital Signs (Past 12 Hours) Vital Signs Temp Pulse Pulse Resp BP BP Pulse Ox 01/29/21 08:09 37 C 73 18 120/71 97 01/29/21 07:49 80 16 103/58 L 98 01/29/21 06:00 18 100/53 L 98 01/29/21 05:31 16 107/46 L 95 01/29/21 05:00 18 101/57 L 95 01/29/21 04:00 16 100/54 L 97 01/29/21 02:53 16 100/48 L 95 01/29/21 01:32 16 94/46 L 100 01/28/21 23:30 16 121/68 100 01/28/21 23:22 18 105/40 L 100 09/21/21 23:00 77 16 100 01/28/21 22:50 77 18 100 01/28/21 22:40 69 17 100 01/28/21 22:32 68 21 100 01/28/21 22:06 75 18 131/83 100 01/28/21 22:00 77 24 131/83 100 PG Care Time/CCT Total # of Minutes Spent Total Time Spent with Patient: Total time spent is greater than 50% in coordination of care (as documented) at patient's floor/unit and/or counseling patient: Coding Level of Care Code 42731 Inpt Consult Level 4 Diagnoses Pneumomediastinum J98.2 Vomiting R11.10 Signed By:<Electronically signed by Nelda Sainz PA-C>01/29/21 1008<Electronically signed by Raymundo Negron Case DO>01/29/21 1517 Ordered Studies 01/28/21 22:17 CT abd pelvis IV con only Urgent CT SCAN OF THE ABDOMEN AND PELVIS WITH IV CONTRAST CLINICAL HISTORY: Vomiting. Leukocytosis. COMPARISON STUDY: No priors. TECHNIQUE: Following the IV administration of 93 cc of Optiray 320, CT scan of the abdomen and pelvis is performed from the lung bases to the proximal femora. Images are reviewed in the axial, sagittal, and coronal planes. IV contrast was administered without complication. A dose lowering technique was utilized a dhering to the principles of ALARA. CT DOSE: 356.63 mGy.cm FINDINGS: Lung bases: The heart is normal in size and without pericardial effusion. The lung bases are clear. Pneumomediastinum is noted around the distal esophagus. Liver: The contrast-enhanced liver is normal in size, contour, and attenuation. There is no intrahepatic biliary ductal dilatation. The hepatic veins and portal veins are patent. Gallbladder: Unremarkable. Spleen: Normal in size and attenuation. Pancreas: Unremarkable. Adrenal glands: Unremarkable. Kidneys: The contrast enhanced kidneys are normal in size and without hydronephrosis. The kidneys enhance symmetrically. Abdominal vasculature: The abdominal aorta is normal in course and caliber. Bowel: There is mild to moderate colonic fecal retention. No bowel obstruction is seen. The appendix is well-visualized and normal. Peritoneum: No intraperitoneal free air or abdominal ascites is identified. Lymphadenopathy: None. Pelvic viscera: The bladder, prostate, and seminal vesicles are normal as visualized. Skeletal structures: No lytic or blastic lesions are seen. IMPRESSION: 1. Pneumomediastinum is noted in the lower chest. 2. No acute infectious or inflammatory findings are seen in the abdomen or pelvis. 3. No bowel obstruction. ACT 112: Negative or not required by law. Electronically signed by: Fili Cartwright M.D. 01/29/2021 8:22 AM 01/29/21 01:10 CT chest diagnostic w con Stat CT OF THE CHEST WITHOUT IV CONTRAST CLINICAL HISTORY: pneumomediastinum, vomiting COMPARISON STUDY: No previous studies for comparison. TECHNIQUE: Following the oral administration of contrast, CT of the thorax was performed from the thoracic inlet to the lung bases. Images are reviewed in the axial, sagittal, and coronal planes. . A dose lowering technique was utilized adhering to the principles of ALARA. CT DOSE: 359.96 mGy.cm FINDINGS: No axillary lymphadenopathy seen. Supra clavicle lymph nodes are not well seen. There is no internal mammary lymphadenopathy. Mediastinal lymph nodes are not enlarged. Thyroid: Visualized portion of thyroid gland shows no evidence of focal lesions. Esophagus is patulous with contrast-gas level. There is no extension of the oral contrast from esophagus to suggest esophageal perforation. Thoracic aorta: The thoracic aorta is normal in course and caliber, noting standard 3-vessel arch anatomy. No aneurysm or dissection is seen. Pulmonary vasculature: Is normal in caliber. Pneumomediastinum is seen surrounding trachea, esophagus and aorta. Gas collection also extend into the neck outlining thyroid gland and carotid arteries. Small amount of gas is seen extending to the right apex and creating minimal right apical pneumothorax. HEART: The heart is normal in size and configuration, without pericardial effusion. No pneumopericardium is seen. Lungs and pleural spaces: Tracheobronchial tree is patent. There are patchy areas of groundglass attenuation within left upper lobe ass ociated with mild septal thickening concerning for atypical infection. No pleural effusion demonstrated. Upper abdomen: Please see report of the CT of abdomen and pelvis performed at the same time. Skeletal structures: Unremarkable. IMPRESSION: * Pneumomediastinum extending to the neck region. No evidence of leakage of esophageal oral contrast to suggest esophageal perforation. Minimal extension of the gas from mediastinum to the right apex, small right apical pneumothorax. * No pneumopericardium. * Patchy infiltrative/groundglass opacities within left upper lung suggestive of infectious etiology/Covid. Short-term follow-up in 4-6 weeks is recommended to document resolution. * The rest of findings as above. ACT 112: Negative or not required by law. The above report was generated using voice recognition software. It may contain grammatical, syntax or spelling errors. Electronically signed by: Za Mayberry DO 01/29/2021 9:22 AM FL barium swallow w/o air CLINICAL HISTORY: 20 years-old Male with R/O esophageal perforation. Pneumomediastinum with possible soft tissue injury. TECHNIQUE: Water-soluble contrast was administered to the patient under fluoroscopic examination. Multiple images were obtained and submitted for review. FLUOROSCOPY TIME: 0.3 minutes. 13 images were submitted. COMPARISON: Chest CT 01/29/2021 FINDINGS: During deglutition, contrast material flowed freely through the cervical esophagus. No filling defect or mucosal abnormality is identified. No abnormal stricturing or mass effect is seen. The mid to distal esophagus is well coated and distended. No abnormal stricturing or mucosal abnormality is identified. No significant reflux or hiatal hernia was demonstrated during the exam. The GE junction is normal in appearance. Pneumomediastinum redemonstrated. IMPRESSION: Pneumomediastinum redemonstrated. No esophageal injury identified. ACT 112: Negative or not required by law. The above report was generated using voice recognition software. It may contain grammatical, syntax or spelling errors. Electronically signed by: Felix Hughes M.D. 01/29/2021 11:21 AM Hospital Course (1) Pneumomediastinum: Attending: Dr. Almazan Impression: This is a 20-year-old male that began having nausea and vomiting the day prior to admission. Patient unsure if this is food poisoning or something else that he ate. He denies any hematemesis. No chest pain or tightness. No tearing sensation. Rigors but no fever. No trauma or other injury. CT abd/pelvis with pneumomediastinum Dedicated CT Chest with pneumomediastinum and small apical pneumothorax Barium swallow study with gastrografin revealed no evidence of esophageal perforation Appreciate GI consult Patient asymptomatic, not hypoxic, no chest pain, no shortness of breath or neck pain Perhaps he had a very small microperforation of the esophagus that sealed itself. Doubtful that the pneumothorax that was tiny caused the significant amount of pneumomediastinum, but rather the pneumothorax was secondary to the pneumomediastinum. Follow-up CT scan of the chest without contrast in 6 weeks Follow-up with Dr. Bee from pulmonology 03/18/2001 at 3:15 PM Encouraged smoking cessation and cessation from marijuana use (2) Abdominal pain: Unclear etiology Positive intractable nausea and vomiting No diarrhea Afebrile WBC elevated at 21.95 which then resolved to normal but the next day Zosyn was given initially but after esophageal perforation ruled out, was discontinued Symptoms completely resolved-possibly related to food poisoning versus marijuana use Encourage cessation of all smoking and marijuana use (3) Hypokalemia: Potassium 3.3 on admission Orally repleted Now within normal limits Most likely due vomiting (4) Pneumothorax: Resolved on chest x-ray CT scan of the chest Patient with no hypoxia Repeat chest x-ray in 4 hours with no evidence of pneumothorax Supplemental oxygen by Oxymask ordered but was never given Patient does not need oxygen going home (5) Tobacco abuse: Discussed tobacco cessation and dangers of smoking (6) Marijuana use: Discussed cessation Patient denies any other substance abuse (7) DVT prophylaxis: Ambulate as tolerated SCDs ordered Please refer to Dr. Almazan's addendum for further recommendations or corrections. Disposition: Patient discharged home Total Time Total Time Spent Total Time Spent (In Minutes): 45 Discharge Plan Discharge Items Patient Disposition: Home - Self-Care Reason For Visit: VOMITING,PNEUMOMEDIASTINUM Discharge Diagnosis: Vomiting, pneumomediastinum Activity: Resume your previous activity Lifting: Gradually increase as tolerated Bathing: No limitations Exercise/Sports: Wait until after follow-up appointment Driving/Machine Use: No limitations Weightbearing: Full weightbearing Non-emergency contact: Primary Care Provider and Senior Mobile Developer Call non-emergency contact if: you have any medication questions, your symptoms worsen and you have a fever Follow-up/Referrals: Sebastien Bee MD [Physician] - 03/18/21 3:15 pm (03/18/2021 at 3:15pm) PCPBLADIMIR [Primary Care Provider] - Diet: Regular Addtl Attending Provider Instructions: You were admitted secondary to retching and vomiting. Imaging performed at the time of admission showed air in your chest called pneumomediastinum. Over the course of your hospital stay he developed subcutaneous emphysema which is air underneath the skin. The cause of the pneumomediastinum is unknown. We will schedule a CT scan of the chest in approximately 6 weeks to follow resolution of the air. He will then see Dr. Bee in follow-up at the [facility] physician group pulmonary office on 03/18/2021 at 3:15 PM. Please be sure to keep this appointment You also had a small collapse of the lung called an apical pneumothorax. This was not present on chest x-ray the following day. A barium swallow study was conducted with Gastrografin and ruled out a perforation of your esophagus. You should follow-up with your primary care physician and make sure they are aware of your condition while here in the hospital. It is advised that you abstain from all inhalation including tobacco, cigarettes, vaping, marijuana, or other inhalable substances. If you have increased problems with breathing, chest pain, sputum with blood, etc. please report to the emergency department for further evaluation Pending Studies at Discharge: No Stand-Alone Forms: [facility], Smoking Cessation Medications and DC Order Prescriptions: No Action No Known Home Medications RF: 0 Discharge Orders: Discharge Order (Routine); Ordered 01/30/21 Ordered By: Fili Lechuga/Other Patient Handouts: Why Do You Smoke?, Planning to Quit Smoking, The Benefits of Living Smoke Free, Kicking the Smoking Habit, Understanding E- Cigarettes and Vaping Admission Data Admit Date/Time: 01/29/21 06:57 Attending Provider: Lorin Almazan Admit Provider: Thais Silva Primary Care Provider: PCP,NO Other Providers: Raymundo Seaman ; Thais Silva Other Interventions: Discharge Summary Assessment (RN) Last Done: 01/30/21 13:16 Supervising Physician Co-Signing Physician Notes PA Supervision Note: I personally saw and examined the patient. I verified all chung points and agree with FLAQUITA Baird with the following exceptions and/or additions: This patient is a 20-year-old male with no significant past medical history except marijuana use who presents with intractable nausea vomiting and was found to have a large pneumomediastinum and small apical pneumothorax on imaging. He was admitted for observation at the recommendation of a call from ER physician to CT surgery at [facility] in [place]. When I saw him, he complained only of a mild sore throat, but otherwise felt fine and was hungry. He denied chest pain or shortness of breath, no neck pain or back pain, no abdominal pains. He is still having some loose stools from the contrast from the CT scan oral contrast and the barium swallow which did not show any esophageal rupture. By the next day, he was completely asymptomatic and felt great, ambulating around room. Vitals reviewed Gen: AAOx3, NAD HEENT: Anicteric sclerae, EOMI, very mild subcutaneous emphysema palpable just above the right clavicle CV: RRR no mgr nl S1S2 Pulm: with slight wheeze left middle lung field Abd: +BS soft NT ND no masses or hernias Ext: No edema, 2+ DP pulses Skin: No rashes, warm/dry Neuro: Full strength throughout Laboratory values reviewed Imaging studies reviewed 20-year-old male here with intractable nausea/vomiting and pneumomediastinum and small apical pneumothorax-esophageal rupture ruled out. He does have left upper lobe pneumonitis which is likely aspiration from vomiting, however no fevers and no cough or respiratory symptoms. Does have leukocytosis secondary to vomiting pneumomediastinum which has since resolved He is ariana po without N/V Not hypoxic Stable for dc to home with outpt CT CHest in 6 weeks with PULM f/u. recommend cessation of all smoking cigareets and marijuana Coding Level of Care Code D/C DAY MANAGEMENT >30 MINS Diagnoses Pneumomediastinum J98.2 Abdominal pain R10.9 Hypokalemia E87.6 Pneumothorax J93.9 Tobacco abuse Z72.0 Marijuana use F12.90 DVT prophylaxis Z29.9
[2021-01-31 04:37] LABS: Marijuana Quant, GCMS Urine 1722 ng/mL (<5)
== END 2021-01-30 13:56 | disposition home or self-care (01) ==
LOC: ED 20:02 → 2W 01-29 06:57 → INTOOBSV 01-29 06:57 → SUATTDRO 01-29 06:57 → 2W 01-29 07:49